=== PATIENT | male | born 1955 | race Caucasian/White ===

== ENCOUNTER 2021-11-06 16:00 | Outpatient (CLI) | payer MEDICARE, SELFPAY ==
--- NOTE | 2021-11-06 16:00 | MR_ITS ---
WS: [id number] MRI LUMBAR SPINE NONCONTRAST TECHNIQUE: Sagittal T1, T2 and STIR imaging. Axial T1 and T2 imaging. CLINICAL INFORMATION: back pain with RLE numbnes and B LE weakness. COMPARISON: None. FINDINGS: Mild lumbar curve. No acute compression. Grade 1 anterolisthesis L4 on L5. Severe central canal steno sis L4-L5 due to grade 1 anterolisthesis in combination with mild disc bulging with moderate facet ar thropathy and ligamentum flavum hypertrophy. Impingement on the traversing L5 nerve roots bilaterally . L1-L2: No significant disc bulging. Mild facet arthropathy. Spinal canal and foramen are patent. L2-L3: Mild annular bulging. Mild facet arthropathy. Spinal canal and foramen are patent. L3-L4: Mild annular bulging. Slight narrowing of the RIGHT subarticular recess with encroachment RIGH T L4 nerve root. Mild RIGHT and no significant LEFT foraminal narrowing. L4-L5: Grade 1 anterolisthesis in combination with disc bulging and facet arthropathy with ligamentum flavum hypertrophy. This results in severe central canal stenosis with impingement on the subarticul ar recess and traversing L5 nerve roots bilaterally. Moderate RIGHT and mild LEFT foraminal narrowing . Impingement on the exiting right L4 nerve root. L5-S1: Mild disc bulging with endplate ridging. Slight impingement on the traversing RIGHT greater th an LEFT S1 nerve roots. Moderate RIGHT foraminal narrowing with slight impingement on the exiting rig ht L5 nerve root. Mild disc bulging C3-C4 on the retarder operator imaging with mild to moderate central canal stenosis. This can b e further evaluated with cervical spine MRI. Small disc protrusions in the lower thoracic spine at T1 0-T11 and T11-T12. Visualized pelvic bony structures: Normal. Paravertebral soft tissues: Normal. MR/MR lumbar spine wo con* [id number] IMPRESSION: 1. Severe central canal stenosis L4-L5 due to grade 1 anterolisthesis in [facility] with disc bulging and facet arthropathy with ligamentum flavum hypertrop hy. Impingement traversing L5 nerve roots bilaterally in the subarticular reces s. 2. Moderate RIGHT L4-L5 foraminal narrowing impinges the exiting RIGHT L4 nerv e root. 3. Mild RIGHT L3-L4 foraminal narrowing. 4. Moderate RIGHT L5-S1 foraminal narrowing with slight contact of the exiting RIGHT L5 nerve root. 5. Moderate facet arthropathy L3-L5. 6. Disc bulging C3-C4 seen on the retarder operator imaging with mild to moderate central canal stenosis. This can be further evaluated with cervical spine MRI. 7. Small central disc protrusions lower thoracic spine at T10-T11 and T11-T12.
== END 2021-11-06 16:01 | disposition home or self-care (01) ==
PROVIDERS: PCP Internal Medicine; Visit Provider Internal Medicine
DX: R20.0 Anesthesia of skin (principal); R53.1 Weakness; M48.061 Spinal stenosis, lumbar region without neurogenic claudication; M51.26 Other intervertebral disc displacement, lumbar region; M47.816 Spondylosis without myelopathy or radiculopathy, lumbar region; M50.21 Other cervical disc displacement, high cervical region
CPT/HCPCS: 72148

== ENCOUNTER → 2021-11-25 16:53 | Outpatient (BNVA) | payer MEDICARE, SELFPAY | PROVIDERS: PCP Internal Medicine; Visit Provider Internal Medicine | DX: I10 Essential (primary) hypertension (principal); N40.0 Benign prostatic hyperplasia without lower urinary tract symptoms | CPT/HCPCS: 80061; G0103 ==

== ENCOUNTER → 2021-12-10 13:15 | Outpatient (BNVA) | payer MEDICARE, SELFPAY | PROVIDERS: PCP Internal Medicine; Visit Provider Orthopaedic Surgery | DX: M43.16 Spondylolisthesis, lumbar region (principal) | CPT/HCPCS: 99214 ==

== ENCOUNTER 2021-12-23 07:04 | Day surgery (SDC) | payer MEDICARE, SELFPAY ==
--- NOTE | 2021-12-18 13:58 | ECG_ITS ---
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 Measurements Intervals [place] Rate: 73 P: 57 TX: 191 QRS: -28 QRSD: 97 T: 47 QT: 383 QTc: 423 Interpretive Statements SINUS RHYTHM BORDERLINE LEFT AXIS DEVIATION [QRS AXIS < -20] No previous ECG available for comparison Electronically Signed On 12-18-2021 22:26:38 CDT by Ramiro Cisse M.D. [id number]
[2021-12-18 14:11] VITALS: BMI 31.1
--- NOTE | 2021-12-18 16:39 | ANES.PREANE2 ---
Pre-Anesthetic Assessment Height/Weight: Height 1.83 m Weight 104.326 kg Preop Diagnosis: Lumbar stenosis Operation Date: 12/23/21 13:35 Proposed Procedures p Lumbar Spine Decompression 44121(Not Applicable) - Abdiel Prater DO Familial anesthetic complications: None Was Beta Tesha taken within 24 hours: N/A Was Clonidine taken within 24 hours: N/A Social No alcohol and No tobacco Exam alert, oriented x 3, clear to auscultation bilaterally and regular rate & rhythm Airway Submandibular: within normal limits Cervical ROM: within normal limits Mallampati: Class I Dentition: chipped History/ROS No significant complaints Pulmonary None reported CV/HEM Hemochromatosis Denies CAD, CHF, valvular disease METS > 4 (does push ups) EKG 12/18/21 ?Interpretive Statements SINUS RHYTHM BORDERLINE LEFT AXIS DEVIATION? [QRS AXIS < -20] No previous ECG available for comparison [id number] Enlarged prostate Hepatic Denies liver disease GI None reported Metabolic None reported Musc/skel Weakness (Patient reports weakness in b/l LE) Spondylolisthesis Stenosis Neuropsych None reported Anesthetic Plan ASA status: 2 Anesthesia: Anesthesia Evaluation and General Other: We discussed risk and benefits of general anesthesia including PONV, sore throat (sometimes severe), corneal abrasion, positioning and peripheral nerve injuries, life threatening allergic reaction, post operative ICU admission requiring prolonged intubation, stroke, heart attack, , permanent blindness, and rare incidences of recall. Patient consents to proceed with general anesthesia. Risk of > 500 ml blood loss (7ml/kg in children): No Medications/Allergies Home Medications Medication Instructions Recorded Confirmed Last Taken Type multivitamin 1 tab PO DAILY 09/25/21 12/18/21 Unknown History naproxen 250 mg tablet 250 mg PO BID PRN 09/25/21 12/18/21 Unknown History losartan 50 mg tablet 50 mg PO DAILY #90 tab 09/26/21 12/18/21 Unknown Rx tamsulosin 0.4 mg capsule (Flomax) 0.4 mg PO DAILY #90 cap 09/26/21 12/18/21 Unknown Rx primidone 50 mg tablet 50 mg PO DAILY PRN 12/18/21 12/18/21 Unknown History Allergies Allergy/AdvReac Type Severity Reaction Status Date / Time No Known Allergies Allergy Verified 12/10/21 13:24 [facility] Anesthesia Medical History Enlarged prostate HTN (hypertension) with goal to be determined Spinal stenosis Social History Smoking and tobacco status: never smoked Data Anesthesia Cardiac Studies: No Data to Display
[2021-12-23] VITALS (10 sets, daily range): BP systolic 116–144; BP diastolic 66–78; PULSE 58–90; RESP 16–22; TEMP 36.2–36.4; O2SAT 95–98
--- NOTE | 2021-12-23 | SCC_ITS ---
Procedure done: 1. Laminectomy with partial facetectomy L4/5 6.9 seconds of fluoroscopic guidance, for a cumulative dose of 2.23 mGy, was provided to Dr. Prater by the radiology department. C-arm images of the lumbar spine were saved for the patient's permanent record. [facility]
--- NOTE | 2021-12-23 08:02 | W.PM.OPSUD ---
Surgery/Procedure H&P Update DATE OF PROCEDURE: December 23, 2021 DATE H&P PERFORMED: 12/10/21 H&P UPDATE INFORMATION: I have reviewed H&P completed within last 30 days, I have examined patient prior to procedure and Changes to prior documentation as noted here PREOP DIAGNOSIS: Lumbar stenosis PLANNED PROCEDURE: Operation Date: 12/23/21 08:50 Proposed Procedures p Lumbar Spine Decompression 50535(Not Applicable) - Abdiel Prater DO
--- NOTE | 2021-12-23 08:05 | P.ANESUD_ITS ---
Pre-Anesthetic Update Pre-Anesthetic Assessment: Date of Surgery/Procedure: 12/23/21 Preop Rosemary gnosis: Lumbar stenosis Proposed Procedure: Operation Date: 12/23/21 08:50 Proposed Procedures p Lumbar Spine Decompression 82456(Not Applicable) - Abdiel Prater, DO Any changes to Pre-Anesthetic Assessment?: No Last Intake: water 0530 Exam: Pre-Anes Outpt Exam: alert, oriented x 3, clear to auscultation bilaterally and regular rate & rhythm Cardiac Studies: No Data to Display
[2021-12-23] MEDS: sodium chloride 0.9% 1,000 ML 30 ML IV (08:15)
--- NOTE | 2021-12-23 09:35 | XR_ITS ---
WS: [id number] Lumbar spine, C-arm fluoroscopy, 12/23/2021 Clinical Data: OR PICS Comparison: None. Findings: Dr. Prater performed a lumbar decompression. XR/XR lumbar spine 1V port 13201 Impression: Lumbar decompression.
[2021-12-23] MEDS: fentaNYL 50 mcg/mL INJ 2mL IVP (09:47)
--- NOTE | 2021-12-23 09:50 | P.PCN_ITS ---
PACU note Narrative: VSS, Good respiratory effort, report to SUPERVISOR COOPERAGE SHOP Exam: awake
--- NOTE | 2021-12-23 09:50 | PM.PACU ---
PACU note Narrative: VSS, Good respiratory effort, report to SHORT PIECE HANDLER Exam: awake
--- NOTE | 2021-12-23 09:53 | P.OP_ITS ---
Operative Report Date of procedure: December 23, 2021 Pre-op diagnosis: Preop Diagnosis Lumbar stenosis Post-op diagnosis: same Procedure done: 1. Laminectomy with partial facetectomy L4/5 Surgeon: Abdiel Prater Eyeglass Frame Truer: Angel Leyva Eyeglass Frame Truer: The surgical services asst, Angel Leyva, PAC was needed for his expertise under the microscope. He was important and necessary throughout the procedure to complete in a safe and timely manner. He assisted with patient positioning prepping and draping tissue retraction suctioning of the operative field protection of the dural sac and tissue closure Estimated blood loss (mL): 5 Procedure: 1. L4/5 laminectomy with patial facetectomy Patient is brought to the operative suite. After undergoing anesthesia they are placed in the prone position. All areas of impingement are well padded. Patient is then prepped and draped in the normal sterile fashion. A skin incision is made over the L4/5 level. This is confirmed under c-arm guidance. A series of dilators are passed and the tubular retractor is docked on the L4 lamina. A bovie is used to clear the soft tissue off the lamina and the L 4/5 facet joint. A high speed armando is then used to perform the laminectomy and take down the medial aspect of the L 4/5 facet joint. A kerrison rongeure was then used to take down the remaining lamina and smooth the edge of the laminectomy up to the point where the ligamentum flavum attaches. Attention was then brought to the medial aspect of the facet joint. The remaining medial aspect of the superior and inferior aspect of the facet joint were taken down with the kerrison from the pedicle of L4 to L 5. The facet joint had significant hypertrophy. Attention was then brought to the Ligamentum Flavum. The ligament was taken down from the lamina of L4 to L5 and out medially to the remaining facet joint. The ligament was thick. The dura was then exposed. The dura was in good rep air. The L4 nerve was then traced with a curette out the L4/5 foramen and found to be adequately decompressed. The L5 nerve was traced with a curette around the L5 pedicle. The lateral recess was opened with a kerrison helping to further decompress the L5 nerve. Wound is then irrigated copiously with saline and surgiflo is used to stop any bleeding. The tubular retractor is removed and the wound is closed with vicryl and monocryl suture. Glue is then used to protect the wound. A sterile dressing is then placed. Patient was then placed in the supine position and transferred to the PACU in stable condition.
--- NOTE | 2021-12-23 09:56 | SUR.PHASEI ---
0937 PT AWAKE ALERT TALKATIVE, ON RA PT VSS PT ABLE TO MOVE BILAT FEET TO COMMAND WITH STRONG DORSAL FLEXATION AND EXTENSION NOTED LOW BACK DRESSING D/I , IV TO HAND #20 WITH NS 250 UP AT KVO RATE PER GRAVITY. PTID BAND TO LT WRIST PT ID'D WITH 2 IDENTIFIERS. BILAT SCDS ON .
[2021-12-23] MEDS: HYDROcodone-acetaminophen 5-325 mg Tablet 1 TAB PO (10:54)
--- NOTE | 2021-12-23 14:41 | ANE.PACU2 ---
Inpatient post-anesthesia follow up: Airway intact: Yes Vital signs: Temperature 97.6 F Pulse Rate 58 Respiratory Rate 18 Blood Pressure 132/72 Pulse Oximetry 96 Oxygen Delivery Me thod Room Air Oxygen Flow Rate Fraction of Inspir ed Oxygen Hydration adequate: Yes Nausea and vomiting: No Pain level: 2 Mental status: Baseline
== END 2021-12-23 11:15 | disposition home or self-care (01) ==
PROVIDERS: PCP Internal Medicine; Visit Provider Orthopaedic Surgery
PROC: (CPT 63005; principal; 2021-12-23 08:50)
DX: M48.061 Spinal stenosis, lumbar region without neurogenic claudication (principal); I10 Essential (primary) hypertension
CPT/HCPCS: 63047; 72020; 76000; 93005; J0690; J1100; J2405; J2704; J2710; J3010; J3490; J7030

== ENCOUNTER → 2022-01-07 09:41 | Outpatient (BNVA) | payer MEDICARE, SELFPAY | PROVIDERS: PCP Internal Medicine; Visit Provider Orthopaedic Surgery | DX: Z47.89 Encounter for other orthopedic aftercare (principal); Z98.890 Other specified postprocedural states | CPT/HCPCS: 99024 ==

== ENCOUNTER → 2022-02-04 11:15 | Outpatient (BNVA) | payer MEDICARE, SELFPAY | PROVIDERS: PCP Internal Medicine; Visit Provider Orthopaedic Surgery | DX: Z47.89 Encounter for other orthopedic aftercare (principal); Z98.1 Arthrodesis status | CPT/HCPCS: 99024 ==

== ENCOUNTER → 2022-02-06 12:25 | Outpatient (BNVA) | payer MEDICARE, SELFPAY | PROVIDERS: PCP Internal Medicine; Referring Provider Orthopaedic Surgery; Visit Provider Specialist | DX: M54.17 Radiculopathy, lumbosacral region (principal); G62.9 Polyneuropathy, unspecified; G25.0 Essential tremor | CPT/HCPCS: 99204 ==

== ENCOUNTER 2022-02-26 13:36 | Outpatient (CLI) | payer MEDICARE, SELFPAY ==
--- NOTE | 2022-02-26 14:15 | US_ITS ---
WS: [id number] RIGHT UPPER QUADRANT ULTRASOUND HISTORY: E83.119 - Hemochromatosis, unspecified COMPARISON: None available. Liver: 16.0 cm in length. Normal size liver. No bile duct dilatation or mass. Portal Vein: Normal hepatopetal flow with monophasic waveform. Gallbladder: Normally distended gallbladder with no stones or wall thickening. CBD: 0.4 cm Pancreas: Poorly visualized due to body habitus. Right kidney: 10.6 cm in length. Normal size and echogenicity. No hydronephrosis or mass. Aorta and IVC: Unremarkable abdominal aorta and IVC. No ascites. US/US liver [id number] IMPRESSION: Normal RIGHT upper quadrant ultrasound.
== END 2022-02-26 13:37 | disposition home or self-care (01) ==
PROVIDERS: PCP Internal Medicine; Visit Provider Internal Medicine
DX: E83.119 Hemochromatosis, unspecified (principal)
CPT/HCPCS: 76705

== ENCOUNTER → 2022-02-27 14:17 | Outpatient (BNVA) | payer MEDICARE, SELFPAY | PROVIDERS: PCP Internal Medicine; Referring Provider Specialist; Visit Provider Specialist | DX: G62.89 Other specified polyneuropathies (principal); M54.17 Radiculopathy, lumbosacral region | CPT/HCPCS: 95909; 95911 ==

== ENCOUNTER → 2022-03-06 09:30 | Outpatient (BNVA) | payer MEDICARE, SELFPAY | PROVIDERS: PCP Internal Medicine; Referring Provider Specialist; Visit Provider Specialist | DX: M54.17 Radiculopathy, lumbosacral region (principal); G62.9 Polyneuropathy, unspecified | CPT/HCPCS: 36415; 82607; 82746; 83921; 84443; 85651; 86140; 86334; 86431; 95861; 99213; 99214 ==

== ENCOUNTER → 2022-03-18 10:06 | Outpatient (BNVA) | payer MEDICARE, SELFPAY | PROVIDERS: PCP Internal Medicine; Visit Provider Orthopaedic Surgery | DX: Z47.89 Encounter for other orthopedic aftercare (principal); Z98.890 Other specified postprocedural states; G62.9 Polyneuropathy, unspecified | CPT/HCPCS: 99024 ==

== ENCOUNTER → 2022-06-09 13:11 | Outpatient (BNVA) | payer MEDICARE, SELFPAY | PROVIDERS: PCP Internal Medicine; Visit Provider Specialist | DX: M54.17 Radiculopathy, lumbosacral region (principal); G25.0 Essential tremor; Z98.890 Other specified postprocedural states | CPT/HCPCS: 99213; 99214 ==

== ENCOUNTER → 2022-06-19 10:01 | Outpatient (BNVA) | payer MEDICARE, SELFPAY | PROVIDERS: PCP Internal Medicine; Visit Provider Orthopaedic Surgery | DX: M54.17 Radiculopathy, lumbosacral region (principal) | CPT/HCPCS: 99213; 99214 ==

== ENCOUNTER → 2022-07-08 13:36 | Outpatient (BNVA) | payer MEDICARE, SELFPAY | PROVIDERS: PCP Internal Medicine; Visit Provider Family Medicine Adult Medicine | DX: Z13.6 Encounter for screening for cardiovascular disorders (principal); I10 Essential (primary) hypertension; N40.0 Benign prostatic hyperplasia without lower urinary tract symptoms | CPT/HCPCS: 80053; 80061; 84153; 85025 ==

== ENCOUNTER 2022-08-08 07:42 | Outpatient (CLI) | payer MEDICARE, SELFPAY ==
--- NOTE | 2022-08-08 08:00 | MR_ITS ---
WS: [id number] MRI LUMBAR SPINE NONCONTRAST HISTORY: Bilateral leg numbness for 5 years. COMPARISON: 11/06/2021 TECHNIQUE: Sagittal and axial multisequence imaging is submitted. Marked increase in thoracic kyphosis. Mild cervical stenosis at C3-4. Disc bulging and osteophytic ri dging at T11-12 and T12-L1 with mild encroachment upon the ventral thecal sac, greatest at T11-12. Si milar to the prior study. Prior lumbar laminectomy 12/23/2021. L4 anterolisthesis by 7 mm. No fractures or marrow edema. Mild disc space narrowing and desiccation throughout. Conus terminates normally at L1. L1-L2: Mild facet and ligamentum flavum arthritis. No high-grade stenosis. L2-L3: Mild osteophytic ridging, ligamentum flavum and facet arthritis. No significant stenosis or pr ogression. L3-L4: Diffuse annular disc bulging with osteophytic ridging. Encroachment into the central canal. Th ere is at least mild if not moderate central, bilateral subarticular recess stenosis. Slightly progre ssed since the prior study. L4-L5: Large RIGHT laminectomy defect is noted since the prior study. Anterolisthesis and unroofing of the L4-5 disc. There is soft tissue causing complete effacement of fat in the foramina. Similar to the prior study. Continued central and bilateral subarticular recess stenosis. Some of these changes may be related to scar tissue but no contrast was given to differentiate. There is increase fluid in the facet joints. L5-S1: Diffuse annular disc bulge. Central disc protrusion with asymmetric disc bulging. Mild central and moderate bilateral foraminal stenosis and subarticular recess encroachment. Slightly greater enc roachment upon the traversing RIGHT S1 nerve root. MR/MR lumbar spine wo con* [id number] IMPRESSION: 1. New RIGHT hemilaminectomy defect at L4-5. Continued severe central, bilater al subarticular recess and foraminal stenosis with encroachment upon the nerve roots. 2. Mild central with moderate bilateral subarticular recess and foraminal sten osis at L5-S1. Greater encroachment upon the RIGHT S1 nerve root. 3. Continued grade 1 anterolisthesis of L4. 4. Mild to moderate central, bilateral subarticular recess and foraminal steno sis at L3-4 with slight progression since the prior study.
== END 2022-08-08 07:43 | disposition home or self-care (01) ==
PROVIDERS: Visit Provider Orthopaedic Surgery
DX: M54.17 Radiculopathy, lumbosacral region (principal); M48.07 Spinal stenosis, lumbosacral region
CPT/HCPCS: 72148

== ENCOUNTER → 2022-09-04 13:59 | Outpatient (BNVA) | payer MEDICARE, SELFPAY | PROVIDERS: Visit Provider Orthopaedic Surgery | DX: Z47.89 Encounter for other orthopedic aftercare (principal) | CPT/HCPCS: 99214 ==

== ENCOUNTER 2022-12-09 16:30 | Emergency (ER) | payer MEDICARE, SELFPAY ==
[2022-12-09 16:34] VITALS: BP 150/78; PULSE 84; RESP 16; TEMP 37; O2SAT 97
--- NOTE | 2022-12-09 18:00 | W.ED.BACK ---
HPI - Back Pain/Injury General: Chief Complaint: Back Pain/Injury Stated Complaint: Lower Right back pain Time Seen by Provider: 12/09/22 17:13 History of Present Illness: Patient is a 67-year-old male comes to the ED with acute on chronic lower back pain. He endorses having chronic lower back pain as well and has a history of degenerative disc disease and some lumbar stenosis. Patient also sees Dr. Prater the orthospine specialist. Symptoms started approximately 4 days ago. Pain is in the lower back and also radiates down right leg. He rates the pain currently a 5 out of 10 but says most the time its been close to a 9 out of 10. Denies any injury or trauma to cause worsening back pain. Denies any bladder or bowel incontinence, pelvic anesthesia or any weakness to lower extremities. Ambulation worsens pain. Associated symptoms: Deny abdominal pain, chills, dysuria, fatigue, fever(s), hematuria, nausea or vomiting Review of Systems Const: Denies: fever(s), chills or fatigue Eyes: Denies: change in vision or eye discomfort ENMT: Denies: throat pain, odynophagia, nasal discharge or nasal congestion Card: Denies: chest pain, palpitations, edema, swelling of feet/ankles, dyspnea on exertion or orthopnea Resp: Denies: dyspnea, productive cough or non-productive cough GI: Denies: abdominal pain, nausea, vomiting, diarrhea, constipation or hematochezia : Denies: flank pain, difficulty urinating, dysuria or hematuria Musc: Reports: back pain; Denies: neck pain or extremity swelling Skin/Breast: Denies: rash or new lesions Neuro: Denies: headache(s), numbness in extremities or weakness in extremities PFSH ED PFSH: Medical History Abnormal EKG DDD (degenerative disc disease) Encounter for postoperative care Enlarged prostate History of a prostate nodule HTN (hypertension) with goal to be determined Lumbar radiculopathy Lumbosacral radiculopathy at L5 Surgical History History of hernia surgery S/P laminectomy Dr. Prater with L4-L5 laminectomy 12/23/2021 Family History Father Cancer brain and skin Mother Cancer ovarian Other Dementia Hyperlipidemia Hypertension Denies family history of Diabetes CAD (coronary artery disease) Clotting disorder Psychiatric illness Chronic kidney disease (CKD) Anesthesia complication Bleeding disorder Lung disease Stroke Social History Smoking and tobacco status: former smoker Alcohol intake: current Alcohol intake frequency: few times a week Desire information about alcohol rehabilitation?: No Desire information about substance/drug rehabilitation?: No Lives independently: Yes Marital status: Number of children: 2 Current occupational status: retired Current gender identity: Male Physical Exam Const: COMMON NORMALS: patient oriented x3 HENMT: COMMON NORMALS: normocephalic HEAD & SCALP: normocephalic MOUTH: Normal oral and palatal mucosa present THROAT: posterior oropharynx normal and uvula midline Neck/C-Spine: COMMON NORMALS: supple GENERAL: Yes normal visual inspection Resp: COMMON NORMALS: normal respiratory effort, No retractions, No use of accessory muscles and clear to auscultation bilaterally AUSCULTATION: clear to auscultation bilaterally Cardio: COMMON NORMALS: regular rate, regular rhythm, S1 normal heart sound present, S2 normal heart sound present, No gallops present (Cardio), No clicks present (Cardio), No murmurs present (Cardio) and Peripheral pulses 2+ throughout RATE: regular rate RHYTHM: regular rhythm HEART SOUNDS: S1 normal heart sound present and S2 normal heart sound present PERIPHERAL PULSES: Peripheral pulses 2+ throughout GI: COMMON NORMALS: Normal to inspection, nondistended, normoactive bowel sounds present, Soft to palpation, non-tender and no masses PALPATION: Yes Soft to palpation : COMMON NORMALS: Yes no CVA tenderness BLADDER/KIDNEY EXAM: Yes no CVA tenderness Back/Pelvis: COMMON NORMALS: no CVA tenderness LUMBAR SPINE/LOWER BACK: Yes lumbar ROM normal and Yes paraspinal muscle tenderness Lumbar paraspinal muscle tenderness: bilateral Extremity: COMMON NORMALS: normal to inspection Neuro: COMMON NORMALS: patient oriented x3 GAIT: Yes Normal gait present Skin: GENERAL SKIN EXAM: dry skin Course Vital Signs: Vital signs: Vital Signs Temperature 98.6 F 12/09/22 16:34 Pulse Rate 77 12/09/22 18:14 Respiratory Rate 16 12/09/22 18:14 Blood Pressure 142/75 12/09/22 18:14 Pulse Oximetry 95 12/09/22 18:14 Oxygen Delivery Me thod 12/09/22 18:14 MDM - Back Pain/Injury Medical Decision Making Patient is a 67-year-old male comes to the ED with acute on chronic lower back pain. He endorses having chronic lower back pain as well and has a history of degenerative disc disease and some lumbar stenosis. Patient also sees Dr. Prater the orthospine specialist. Symptoms started approximately 4 days ago. Pain is in the lower back and also radiates down right leg. He rates the pain currently a 5 out of 10 but says most the time its been close to a 9 out of 10. Denies any injury or trauma to cause worsening back pain. Denies any bladder or bowel incontinence, pelvic anesthesia or any weakness to lower extremities. Ambulation worsens pain. Vitals are stable. Patient had some lumbar paraspinal muscle tenderness bilaterally but rest of exam is benign and he appears nontoxic in no acute distress. He is able to ambulate. Patient was given dose of pain med, muscle relaxer and steroid here in the ED and his symptoms improved. He was stable for discharge home and sent home with a prescription for a couple hydrocodone, NSAID, muscle relaxer and Medrol Dosepak. Told to follow-up with his PCP within the next 3 to 5 days for reevaluation. Return to ED precautions given. Patient understood and agreed with plan. Discharge Plan Discharge Patient Disposition: Home Clinical Impression: Lumbar radiculopathy Condition: Stable Prescriptions: New meloxicam 15 mg tablet 15 mg PO DAILY PRN (Reason: pain) Qty: 30 0RF methocarbamol 750 mg tablet 750 mg PO Q8H PRN (Reason: muscle spasms and pain) Qty: 30 0RF methylprednisolone 4 mg tablets,dose pack See Rx Instructions .ROUTE .COMPLEX Qty: 21 0RF Rx Instructions: orally per package directions No Action naproxen 250 mg tablet 250 mg PO BID PRN (Reason: Pain) multivitamin Tablet 1 tab PO EVERY OTHER DAY tamsulosin [Flomax] 0.4 mg capsule 0.4 mg PO DAILY Qty: 90 3RF Vitamin C 500 mg Tablet 500 mg PO BID Fish Oil 1,200 (144-216) mg Capsule 1 cap PO DAILY Prostate Health 160-100-100 mg-unit-mcg Tablet 1 tab PO DAILY Discharge Orders: Discharge ED (Routine); Ordered 12/09/22 Ordered By: Abner Mac Referrals: Kumar Ewing MD [Primary Care Provider] - Discharge Diet: Regular Discharge Activity: Increase activity as tolerated Patient Instructions: Lumbar Radiculopathy (ED) Activity Restrictions/Additional Instructions: Follow-up with medical provider as directed in the next 3-5 days for reevaluation. Take medications as prescribed. Return to the ER or your medical provider if condition worsens. Please read and understand discharge instructions. Thank you for choosing [facility] for your healthcare needs today. Please realize this is an emergency room and that we are providing you with a medical screening exam and this may not be complete and all inclusive of all the testing and or work up that you may need to determine your ailment or severity of your illness. It is very important that you follow up as instructed or that you return to the Emergency Department should you have concerns or if your condition changes or worsens in any way. Coding Level of Care Code ED Director Acute for Aura Banks
[2022-12-09 18:12] VITALS: RESP 15; O2SAT 97
[2022-12-09] MEDS: morphine 4 mg/mL SDV 1 mL IM (18:12)
[2022-12-09] MEDS: orphenadrine 30 mg/mL Inj 2 mL 60 MG IM (18:13)
[2022-12-09 18:14] VITALS: BP 142/75; PULSE 77; RESP 16; O2SAT 95
[2022-12-09] MEDS: ketorolac 60 mg/2 mL INJ IM (18:45)
== END 2022-12-09 19:41 | disposition home or self-care (01) ==
PROVIDERS: Emergency Provider Physician Assistant; PCP Family Medicine Adult Medicine
DX: M54.16 Radiculopathy, lumbar region (principal)
CPT/HCPCS: 96372; 99284; J1885; J2270; J2360; J2930

== ENCOUNTER → 2022-12-11 14:08 | Outpatient (BNVA) | payer MEDICARE, SELFPAY | PROVIDERS: PCP Family Medicine Adult Medicine; Visit Provider Orthopaedic Surgery | DX: M48.062 Spinal stenosis, lumbar region with neurogenic claudication (principal) | CPT/HCPCS: 99214 ==

== ENCOUNTER 2022-12-14 19:43 | Emergency (ER) | payer MEDICARE, SELFPAY ==
[2022-12-14 19:54] VITALS: BP 148/74; PULSE 83; RESP 22; TEMP 36.9; O2SAT 96; BMI 31.1
[2022-12-14 20:09] VITALS: BP 151/82; PULSE 96; RESP 16; TEMP 36.8; O2SAT 92
--- NOTE | 2022-12-14 20:24 | CTR_ITS ---
PROCEDURE INFORMATION: Exam: CT Lumbar Spine Without Contrast Exam date and time: 12/14/2022 8:30 PM Age: 67 years old Clinical indication: Weakness; Low back pain; Prior surgery; Surgery date: 6+ months; Surgery type: Lumbar laminectomy; Additional info: Lower back pain, R radiculopathy HX laminectomy TECHNIQUE: Imaging protocol: Computed tomography of the lumbar spine without contrast. Radiation optimization: All CT scans at this facility use at least one of these dose optimization techniques: automated exposure control; mA and/or kV adjustment per patient size (includes targeted exams where dose is matched to clinical indication); or iterative reconstruction. REPORTING DATA: Count of CT and Cardiac NM exams in prior 12 months: This patient has received 0 known CTs and 0 known cardiac nuclear medicine studies in the 12 months prior to the current study. COMPARISON: MR lumbar spine wo con* [id number] 08/08/2022 8:06 AM RADIATION DOSE METRICS: Total DLP (mGy-cm): 1255.18 FINDINGS: Bones/joints: Right L5 laminectomy changes. L1-L2: No significant disc bulge or herniation. No severe spinal canal stenosis. No significant neural foraminal narrowing. L2-L3: L2-L3 broad-based disc bulge with mild spinal canal and bilateral foraminal narrowing. L3-L4: L3-L4 broad-based disc bulge with mild spinal canal and moderate bilateral foraminal narrowing. L4-L5: Grade 1 anterolisthesis of L4 relative to L5 of 5.7 mm with a broad-based disc bulge resulting in eszc-uc-bepyjrqy spinal canal and moderate to severe bilateral foraminal narrowing. L5-S1: L5/S1 broad-based disc bulge with mild spinal canal and moderate to severe bilateral foraminal narrowing. Soft tissues: Unremarkable. CT/CT lumbar spine wo con* [id number] IMPRESSION: 1. L2-L3 broad-based disc bulge with mild spinal canal and bilateral foraminal narrowing. 2. L3-L4 broad-based disc bulge with mild spinal canal and moderate bilateral foraminal narrowing. 3. Grade 1 anterolisthesis of L4 relative to L5 of 5.7 mm with a broad-based disc bulge resulting in mipo-yt-ecazqdpk spinal canal and moderate to severe bilateral foraminal narrowing. 4. L5/S1 broad-based disc bulge with mild spinal canal and moderate to severe bilateral foraminal narrowing. 5. Right L5 laminectomy changes.
[2022-12-14] MEDS: ketorolac 30 mg/mL INJ IM (20:44)
[2022-12-14] MEDS: HYDROmorphone 1 mg/mL INJ 1 mL 2 MG IM (20:46)
--- NOTE | 2022-12-14 22:01 | ED_ITS ---
HPI - Back Pain/Injury General: Chief Complaint: Back Pain/Injury Stated Complaint: back pain Time Seen by Provider: 12/14/22 19:48 Source: patient History of Present Illness: 67-year-old gentleman with a history of laminectomy a year ago. He presents with increasing back pain radiating down his posterior right lower extremity for the past several days. He has been seen here in the ER for this. Has been seen by his primary physician as well as a spine surgeon. He has been placed on hydrocodone 7.5 mg, gabapentin, and meloxicam. He has also taken cyclobenzaprine. He notes that the pain is gotten worse despite all these things. His last dose of hydrocodone was 2 pills 4 hours prior to arrival. He believes this is wearing off. He was lying in bed with increasing pain, and felt that he could not stand the pain any longer. He was told that he may need an MRI and to come to the emergency department for this. MD elicited complaint: back pain Pertinent past history: prior back pain Onset (ago): day(s) Timing: constant and progressively worsening Quality: burning and sharp Radiation: right leg below the knee Relieving factors: none Associated symptoms: Deny abdominal pain, chills, dysuria, fever(s) or myalgias Review of Systems Const: Denies: fever(s) or chills Card: Denies: chest pain Resp: Denies: dyspnea GI: Denies: abdominal pain : Denies: flank pain, difficulty urinating or dysuria Musc: Reports: back pain Skin/Breast: Denies: rash Neuro: Denies: headache(s) PFSH ED PFSH: Medical History Abnormal EKG DDD (degenerative disc disease) Encounter for postoperative care Enlarged prostate History of a prostate nodule HTN (hypertension) with goal to be determined Lumbar radiculopathy Lumbosacral radiculopathy at L5 Sciatica neuralgia Surgical History History of hernia surgery S/P laminectomy Dr. Prater with L4-L5 laminectomy 12/23/2021 Family History Father Cancer brain and skin Mother Cancer ovarian Other Dementia Hyperlipidemia Hypertension Denies family history of Diabetes CAD (coronary artery disease) Clotting disorder Psychiatric illness Chronic kidney disease (CKD) Anesthesia complication Bleeding disorder Lung disease Stroke Social History Smoking and tobacco status: former smoker Alcohol intake: current Alcohol intake frequency: few times a week Desire information about alcohol rehabilitation?: No Desire information about substance/drug rehabilitation?: No Lives independently: Yes Marital status: Number of children: 2 Current occupational status: retired Current gender identity: Male Physical Exam Const: COMMON NORMALS: no acute distress GENERAL APPEARANCE: cooperative; not ill appearing and not frail appearing HENMT: COMMON NORMALS: normocephalic, atraumatic and Normal external nose present HEAD & SCALP: normocephalic and atraumatic FACE & SINUS: normal facial exam and face symmetric NOSE: Normal external nose present Eye: COMMON NORMALS: Equal, round and reactive pupils present and EOMs intact bilaterally PUPIL: Yes Equal, round and reactive pupils present Neck/C-Spine: GENERAL: Yes trachea midline Chest: CHEST: Yes Symmetrical chest wall rise Resp: COMMON NORMALS: normal respiratory effort, No retractions, No use of accessory muscles and clear to auscultation bilaterally AUSCULTATION: clear to auscultation bilaterally Cardio: COMMON NORMALS: regular rate and regular rhythm RATE: regular rate RHYTHM: regular rhythm GI: COMMON NORMALS: Normal to inspection, nondistended, normoactive bowel sounds present Back/Pelvis: LUMBAR SPINE/LOWER BACK: Yes straight leg raise positive right OTHER: Tenderness at L5-S1 bilaterally Extremity: COMMON NORMALS: no pedal edema Neuro: ERWIN COMA SCALE: document GCS findings [place] coma scale eye opening: Spontaneous [place] coma scale verbal response: Orientated [place] coma scale motor response: Obey commands Erwin coma scale total score: 15 SENSORY EXAM: Yes extremities (intact) Psych: COMMON NORMALS: speech normal SPEECH: Yes normal speech Skin: COMMON NORMALS: no rashes or lesions noted GENERAL SKIN EXAM: no rashes or lesions noted Course Vital Signs: Vital signs: Vital Signs Temperature 98.2 F 12/14/22 20:09 Pulse Rate 61 12/14/22 23:05 Respiratory Rate 18 12/14/22 23:05 Blood Pressure 136/90 12/14/22 23:05 Pulse Oximetry 91 12/14/22 23:05 Oxygen Delivery Me thod Room Air 12/14/22 22:30 MDM - Back Pain/Injury Medical Decision Making CT scan of the lumbar spine shows L5-S1 broad-based disc bulge with moderate to severe bilateral foraminal narrowing. There is only mild canal central narrowing. There is grade 1 anterolisthesis of L4 relative to L5. The patient is not having red flag symptoms. He is not having significant weakness. This is simply a pain control issue at this point until further intervention is decided upon. His pain is now a 4 out of 10 from 9 out of 10 after intramuscular injection of Toradol and Dilaudid. He will be allowed discharge. He has been told to discontinue his hydrocodone in favor of Dilaudid. He will discontinue other NSAIDs in favor of Toradol. He will continue his prednisone. Labs Radiology Impressions Lumbar Spine CT 12/14/22 20:24 IMPRESSION: 1. L2-L3 broad-based disc bulge with mild spinal canal and bilateral foraminal narrowing. 2. L3-L4 broad-based disc bulge with mild spinal canal and moderate bilateral foraminal narrowing. 3. Grade 1 anterolisthesis of L4 relative to L5 of 5.7 mm with a broad-based disc bulge resulting in ugll-vw-vtqpbyqs spinal canal and moderate to severe bilateral foraminal narrowing. 4. L5/S1 broad-based disc bulge with mild spinal canal and moderate to severe bilateral foraminal narrowing. 5. Right L5 laminectomy changes. Discharge Plan Discharge Patient Disposition: Home Clinical Impression: Lumbar radiculopathy Condition: Stable Prescriptions: New Dilaudid 4 mg tablet 4 mg PO Q6H PRN (Reason: pain) Qty: 7 0RF ketorolac 10 mg tablet 10 mg PO TID PRN (Reason: pain) Qty: 10 0RF Discontinued naproxen 250 mg tablet 250 mg PO BID PRN (Reason: Pain) Hold Instructions: Doctor's Order hydrocodone-acetaminophen 7.5-325 mg tablet 1 tab PO Q6H PRN (Reason: pain) 7 Days Qty: 30 0RF meloxicam 15 mg tablet 15 mg PO DAILY PRN (Reason: pain) Qty: 30 0RF methocarbamol 750 mg tablet 750 mg PO Q8H PRN (Reason: muscle spasms and pain) Qty: 30 0RF No Action multivitamin Tablet 1 tab PO EVERY OTHER DAY prednisone 20 mg tablet 20 mg PO DAILY Qty: 15 0RF Rx Instructions: 60mg X3 days 40mg X2 days 20mg X 2days cyclobenzaprine 10 mg tablet 10 mg PO TID PRN (Reason: muscle spasm) Qty: 90 0RF gabapentin 300 mg capsule 300 mg PO TID Qty: 90 0RF (DME) Walker See Rx Instructions .Route .MEDSUPPLY Qty: 1 0RF Rx Instructions: As directed tamsulosin [Flomax] 0.4 mg capsule 0.4 mg PO DAILY Qty: 90 3RF Vitamin C 500 mg Tablet 500 mg PO BID Fish Oil 1,200 (144-216) mg Capsule 1 cap PO DAILY Prostate Health 160-100-100 mg-unit-mcg Tablet 1 tab PO DAILY methylprednisolone 4 mg tablets,dose pack See Rx Instructions .ROUTE .COMPLEX Qty: 21 0RF Rx Instructions: orally per package directions Discharge Orders: Discharge ED (Routine); Ordered 12/14/22 Ordered By: Hoang Pleitez Referrals: Abdiel Prater DO [Physician] - 1-3 days Kumar Ewing MD [Primary Care Provider] - Patient Instructions: Lumbar Radiculopathy (ED), Opioid Safety, Pain Management Activity Restrictions/Additional Instructions: Stop your anti-inflammatory such as meloxicam and naproxen while taking the ketorolac. Stop your hydrocodone while using the hydromorphone. These are st ronger versions of the same type of medication, and will interact. Call your surgeon in the morning. Let them know you had a scan in the emergency department this evening. They may want to review those images to help guide treatment. 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
[2022-12-14 22:28] VITALS: RESP 18
[2022-12-14 22:30] VITALS: BP 162/87; PULSE 86; RESP 18; O2SAT 92
[2022-12-14 23:05] VITALS: BP 136/90; PULSE 61; RESP 18; O2SAT 91
== END 2022-12-14 23:06 | disposition home or self-care (01) ==
PROVIDERS: Emergency Provider Emergency Medicine; PCP Family Medicine Adult Medicine
DX: M54.16 Radiculopathy, lumbar region (principal); Z98.890 Other specified postprocedural states
CPT/HCPCS: 72131; 96372; 99284; J1170; J1885

== ENCOUNTER 2022-12-19 07:01 | Outpatient (CLI) | payer MEDICARE, SELFPAY ==
--- NOTE | 2022-12-19 07:25 | MR_ITS ---
WS: [id number] MRI LUMBAR SPINE NONCONTRAST TECHNIQUE: Sagittal T1, T2 and STIR imaging. Axial T1 and T2 imaging. CLINICAL INFORMATION: hx of lumbar sx, lower back pain with radiculopathy COMPARISON: CT December 14, 2022 and MRI August 08, 2022 FINDINGS: Some images degraded by patient motion. Mild lumbar curve. No acute compression. Grade 1 anterolisthesis L4 on L5. Disc bulging worse L4-L5 a nd L5-S1. Tiny central protrusion with mild central canal stenosis at T11-T12. Slight contact of the lower thoracic cord. Mild central canal stenosis in the cervical spine manager perioperative imaging at C3-C4 postope rative changes L4-L5 laminectomies are new from the prior MRI. L1-L2: Mild facet arthropathy. Spinal canal and foramen are patent. L2-L3: Mild annular bulging. Moderate facet arthropathy. Mild RIGHT and no significant LEFT foraminal narrowing. L3-L4: Mild annular bulging. Moderate facet arthropathy. Mild central canal stenosis. Mild bilateral foraminal narrowing. L4-L5: Grade 1 anterolisthesis. Postoperative changes laminectomy defects. This is new from previous. Residual moderate central canal stenosis although improved from previous. Narrowing of the subarticu lar recess recess bilaterally. RIGHT foraminal protrusion impinges the exiting L4 nerve root with sev ere RIGHT foraminal narrowing. Mild LEFT foraminal narrowing. Moderate to advanced facet arthropathy. L5-S1: Mild bulging. Tiny central protrusion. Slight impingement traversing S1 nerve roots bilaterall y. Mild central canal stenosis. Mild to moderate RIGHT foraminal narrowing. Moderate facet arthropath y. Visualized pelvic bony structures: Normal. Paravertebral soft tissues: Normal. MR/MR lumbar spine wo con* [id number] IMPRESSION: Some images are limited by patient motion 1. Mild lumbar curve. Grade 1 anterolisthesis L4 on L5. Laminectomy defects ar e new from previous. 2. Moderate residual central canal stenosis L4-L5 although improved from previ ous. Impingement traversing L5 nerve roots bilaterally. 3. Severe RIGHT L4-L5 foraminal narrowing. Advanced facet arthropathy at this level. 4. Shallow central disc protrusion L5-S1 impinges the traversing S1 nerve root s bilaterally with mild central canal stenosis. This is unchanged. Mild to mode rate RIGHT L5-S1 foraminal narrowing. 5. Mild central canal stenosis L3-L4 appears stable with mild bilateral forami nal narrowing.
== END 2022-12-19 07:02 | disposition home or self-care (01) ==
LOC: RAD 07:13
PROVIDERS: PCP Family Medicine Adult Medicine; Visit Provider Orthopaedic Surgery
DX: M54.16 Radiculopathy, lumbar region (principal); M48.062 Spinal stenosis, lumbar region with neurogenic claudication; M47.27 Other spondylosis with radiculopathy, lumbosacral region; M48.07 Spinal stenosis, lumbosacral region
CPT/HCPCS: 72148

== ENCOUNTER → 2022-12-23 14:35 | Outpatient (BNVA) | payer MEDICARE, SELFPAY | PROVIDERS: PCP Family Medicine Adult Medicine; Visit Provider Orthopaedic Surgery | DX: M48.062 Spinal stenosis, lumbar region with neurogenic claudication (principal) | CPT/HCPCS: 99214 ==

== ENCOUNTER → 2022-12-31 10:18 | Outpatient (BNVA) | payer MEDICARE, SELFPAY | PROVIDERS: PCP Family Medicine Adult Medicine; Visit Provider Clinical Nurse Specialist Adult Health | DX: I10 Essential (primary) hypertension (principal) | CPT/HCPCS: 80048; 85025 ==

== ENCOUNTER → 2023-01-06 12:58 | Outpatient (BNVA) | payer MEDICARE, SELFPAY | PROVIDERS: PCP Family Medicine Adult Medicine; Visit Provider Orthopaedic Surgery | DX: M48.062 Spinal stenosis, lumbar region with neurogenic claudication (principal) | CPT/HCPCS: 99214 ==

== ENCOUNTER 2023-01-12 17:58 | Inpatient (IN) | payer MEDICARE, SELFPAY ==
[2023-01-08 13:28] VITALS: BMI 31.1
--- NOTE | 2023-01-08 16:36 | P.ANESASSM_ITS ---
Pre-Anesthetic Assessment Height/Weight: Height 1.85 m Weight 107.048 kg Operation Date: 01/12/23 13:30 Proposed Procedures p L3- Pelvis PSF with decompression and PLIF at L5/S1 and possibly L4/5:41697,[id number],[id number],39878 X2,56798,N48.062(Not Applicable) - DO padmini Sosa Posterior Lumbar Interbody Fusion(Not Applicable) - Abdiel Prater DO Familial anesthetic complications: none Was Beta Tesha taken within 24 hours: N/A Was Clonidine taken within 24 hours: N/A Social No alcohol and No tobacco Exam alert, oriented x 3, clear to auscultation bilaterally and regular rate & rhythm Airway Submandibular: within normal limits Mallampati: Class II Dentition: chipped CV/HEM Hypertension Musc/skel Lower Back Pain and Osteoarthritis/DJD Chronic pain/opioid Neuropsych Anxiety Tremor Anesthetic Plan ASA status: 3 Anesthesia: General Other: Discussed a.line and transfusion. Medications/Allergies Home Medications Medication Instructions Recorded Confirmed Last Taken Type multivitamin 1 tab PO EVERY OTHER DAY 09/25/21 01/08/23 1 Day Ago History ~01/07/23 tamsulosin 0.4 mg capsule (Flomax) 0.4 mg PO DAILY #90 caps 10/14/22 01/08/23 1 Day Ago Rx ~01/07/23 ascorbic acid (vitamin C) 500 mg 500 mg PO BID 12/09/22 01/08/23 1 Day Ago History tablet (Vitamin C) ~01/07/23 omega 4-twz-fey-fish oil 1,200 mg 1 cap PO DAILY 12/09/22 01/08/23 1 Day Ago History (144 mg-216 mg) capsule (Fish Oil) ~01/07/23 saw palm 160 mg-vit E 100 1 tab PO DAILY 12/09/22 01/08/23 1 Day Ago History unit-selen 100 ~01/07/23 mcb-wzqg-wcamhj-pygeum tablet (Prostate Health) cyclobenzaprine 10 mg tablet 10 mg PO TID PRN muscle spasm #90 12/11/22 01/08/23 1 Day Ago Rx tabs ~01/07/23 gabapentin 300 mg capsule 300 mg PO TID #90 caps 12/11/22 01/08/23 1 Day Ago Rx ~01/07/23 docusate sodium 100 mg capsule 100 mg PO DAILY #7 caps 12/23/22 01/08/23 1 Day Ago Rx (Colace) ~01/07/23 Walker #1 ea 12/31/22 Unknown Rx Intraoperative neuromonitoring #1 ea 01/05/23 Unknown Rx hydrocodone 10 mg-acetaminophen 1 - 2 tab PO Q6H PRN pain 5 days 01/05/23 01/08/23 1 Day Ago Rx 325 mg tablet #40 tabs ~01/07/23 Allergies Allergy/AdvReac Type Severity Reaction Status Date / Time No Known Allergies Allergy Verified 01/08/23 13:25 [facility] Anesthesia Medical History (Updated 12/31/22 @ 17:20 by Myles Adorno NP) Abnormal EKG he is unsure what this was DDD (degenerative disc disease) Encounter for postoperative care Enlarged prostate History of a prostate nodule HTN (hypertension) with goal to be determined Lumbar radiculopathy Lumbosacral radiculopathy at L5 Sciatica neuralgia Surgical History History of hernia surgery S/P laminectomy Dr. Prater with L4-L5 laminectomy 12/23/2021 Family History Father Cancer brain and skin Mother Cancer ovarian Other Dementia Hyperlipidemia Hypertension Denies family history of Diabetes CAD (coronary artery disease) Clotting disorder Psychiatric illness Chronic kidney disease (CKD) Anesthesia complication Bleeding disorder Lung disease Stroke Social History Smoking and tobacco status: former smoker Alcohol intake: current Alcohol intake frequency: few times a week Desire information about alcohol rehabilitation?: No Substance/Drug Use: never Desire information about substance/drug rehabilitation?: No Lives independently: Yes Marital status: Number of children: 2 Current occupational status: retired Current gender identity: Male Data Anesthesia Cardiac Studies: No Data to Display
[2023-01-12] VITALS (19 sets, daily range): BP systolic 101–165; BP diastolic 56–84; PULSE 67–101; RESP 12–18; TEMP 36.2–36.7; O2SAT 93–97
--- NOTE | 2023-01-12 | XR_ITS ---
WS: [id number] Lumbar spine, C-arm fluoroscopy, 01/12/2023 Clinical Data: SABA PICS Comparison: None. Findings: Dr. Prater performed a fusion of the SI joint. XR/XR lumbar spine 2-3V* [id number] Impression: SI joint fusion.
--- NOTE | 2023-01-12 11:05 | W.PM.OPSUD ---
Surgery/Procedure H&P Update DATE OF PROCEDURE: January 12, 2023 DATE H&P PERFORMED: 01/06/23 H&P UPDATE INFORMATION: I have reviewed H&P completed within last 30 days, I have examined patient prior to procedure and No changes to prior documentation PLANNED PROCEDURE: Operation Date: 01/12/23 12:05 Proposed Procedures p L3-S1 Pelvis PSF with decompression and PLIF at L5/S1 and possibly L4/5:67899,77605,67551,59434,43270,01312,89177 X2,81714,N48.062(Not Applicable) - Abdiel Prater DO s Posterior Lumbar Interbody Fusion(Not Applicable) - Abdiel Prater DO
[2023-01-12 11:45] LABS: Basophils % 0.3 %; Eosinophils # 0.3 10^3/uL (0.0-0.8); Eosinophils % 3.9 %; Hematocrit 46.2 % (42.0-52.0); Hemoglobin 15.6 g/dL (11.7-16.6); Lymphocytes # 2.8 10^3/uL (0.8-4.8); Lymphocytes % 42.7 %; Mean Corpuscular HGB Conc 33.8 g/dL (30.0-36.0); Mean Corpuscular Hemoglobin 32.5 pg (28.0-34.0); Mean Corpuscular Volume 96.3 fl (80-94); Mean Platelet Volume 9.9 fL (7.4-10.4); Monocytes # 0.7 10^3/uL (0.2-0.9); Monocytes % 10.7 %; Neutrophils # 2.78 10^3/uL (1.8-7.7); Neutrophils % 41.9 %; Nucleated Red Blood Cells % 0 %; Platelet Count 278 10^3/cmm (130-400); Red Cell Distribution Width 11.7 % (12.1-15.1); White Blood Count 6.6 10^3/uL (4.0-10.0)
--- NOTE | 2023-01-12 11:48 | P.ANESUD_ITS ---
Pre-Anesthetic Update Pre-Anesthetic Assessment: Date of Surgery/Procedure: 01/12/23 Proposed Procedure: Operation Date: 01/12/23 12:05 Proposed Procedures p L3-S1 Pelvis PSF with decompression and PLIF at L5/S1 and possibly L4/5 :39491,17843,11085,92138,60525,45240,88132 X2,83516,N48.062(Not Applicable) - Abdiel Prater, DO s Posterior Lumbar Interbody Fusion(Not Applicable) - Abdiel H Josi, DO Any changes to Pre-Anesthetic Assessment?: No Last Intake: Intake Last Liquid Date 01/11/23 Last Liquid Time 19:00 Last Solid Date 01/11/23 Last Solid Time 19:00 Labs Last 48hrs: Short CBC 01/12/23 Range/Units 11:25 WBC 6.6 (4.0-10.0) 10^3/ uL Hgb 15.6 (11.7-16.6) g/dL Hct 46.2 (42.0-52.0) % MCV 96.3 H (80-94) fl Plt Count 278 (130-400) 10^3/c mm Neut % (Auto) 41.9 % Neut # (Auto) 2.78 (1.8-7.7) 10^3/u L Vitals: Temperature 97.5 F L 01/12/23 10:54 Temperature Source Temporal Artery S can 01/12/23 10:54 Pulse Rate 67 01/12/23 10:54 Respiratory Rate 18 01/12/23 10:54 Blood Pressure 138/70 01/12/23 10:54 Blood Pressure Chari n 92 01/12/23 10:54 Pulse Oximetry 95 01/12/23 10:54 Oxygen Delivery Me thod Room Air 01/12/23 10:56 Exam: Pre-Anes Outpt Exam: alert, oriented x 3, clear to auscultation bilaterally and regular rate & rhythm Cardiac Studies: No Data to Display
[2023-01-12] MEDS: sodium chloride 0.9% 1,000 ML 30 ML IV (12:16)
[2023-01-12] MEDS: midazolam 1 mg/mL INJ 2 mL 2 MG IVP (12:22)
[2023-01-12] MEDS: ceFAZolin 2,000 MG in sodium chloride 0.9% (plus) 50 ML 100 MG IV ×2 (13:27→17:09)
[2023-01-12] MEDS: vancomycin 1,000 MG SDV 1000 MG XX (15:22)
[2023-01-12] MEDS: lidocaine-epi 1% 20 mL INJ INJECTION (15:22)
[2023-01-12] MEDS: heparin, porcine 1,000 unit/mL INJ 10 mL 10000 UNIT IRRIGATION (15:22)
--- NOTE | 2023-01-12 17:52 | P.OP_ITS ---
Operative Report Date of procedure: January 12, 2023 Pre-op diagnosis: Preop Diagnosis DDD lumbar spine, Lumbar stenosis with neurogenic cladicaation Post-op diagnosis: same Procedure done: 1.? L4/5 Interbody fusion with posterolateral fusion 2.? L5/S1 Interbody fusion with posterolateral fusion 3.? Instrumentation L3-S1 4.? Lumbo pelvic fixation 5.? Posterolateral fusion from L3-Pelvis 6. Cage at L4/5 7. Cage at L5/S1 8. Open SI joint fusion on the right 9. open SI joint fusion of the Left 10. L4/5 Laminectomy with partial facetectomy 11. L5/S1 laminctommy with partial facetectomy 12. use of autograft from same incision 13. allograft 14. Bone marrow aspirate from right iliac crest 15. use of computer navigation stereotactic from spine Surgeon: Abdiel Prater Bottle Selector: Angel Leyva Bottle Selector: The certified surgical assistant, Angel Leyva, PAC was needed for his expertise under the microscope. He was important and necessary throughout the procedure to complete in a safe and timely manner. He assisted with patient positioning prepping and draping tissue retraction suctioning of the operative field protection of the dural sac and tissue closure Estimated blood loss (mL): 1,200 Procedure: 1.? L4/5 Interbody fusion with posterolateral fusion 2.? L5/S1 Interbody fusion with posterolateral fusion 3.? Instrumentation L3-S1 4.? Lumbo pelvic fixation 5.? Posterolateral fusion from L3-Pelvis 6. Cage at L4/5 7. Cage at L5/S1 8. Open SI joint fusion on the right 9. open SI joint fusion of the Left 10. L4/5 Laminectomy with partial facetectomy 11. L5/S1 laminctommy with partial facetectomy 12. use of autograft from same incision 13. allograft 14. Bone marrow aspirate from right iliac crest 15. use of computer navigation stereotactic from spine Patient is brought to the operative suite.? After undergoing anesthesia, the patient had neuro monitoring attached.? Patient was then placed in the prone position on the Jordan table.? All areas of impingement were well-padded.? Patient was then prepped and draped in the normal sterile fashion.? Skin incision was then made over the L3-sacrum.? Subperiosteal dissection was made out to the transverse processes of L3 and L4 and L5 and out to the sacral ala's and dissecting out the sacroiliac joints.? The [employer] bone marrow aspirate kit was used to aspirate bone marrow aspirate from the right iliac crest.? This was done by using the sharp probe to open up the bone.? Aspiration was performed and then the blunt probe was then used to dissect down to through the bone tunnel.? An aspirating well drawn back a almaz meter approximately 20 cc of bone marrow aspirate was used.? And mixed with the allograft and autograft bone that will be used. Extension was brought to placing the pins for the computer navigation fiducial.? This was done by placing 2 iliac crest pins in the right side.? These pins were later removed within the case.? Skin incision made in 2 pins were placed fiducial was attached to these 2 pins.? And then the C-arm was brought in and spun around the patient and the information from the C-arm was then loaded into the computer through the fiducials.? And later used to place the pedicle screws. The technique for placing the pedicle screws was to use a drill followed by the gearshift probe linked to computer navigation.? Followed by the ball probe to feel the superior inferior medial lateral lin of the pedicles.? Then placement of the screws linked to computer navigation.? Was done at each pedicle.? Screws were placed at L 3 bilaterally and L4? bilaterally, L5 bilaterally and S1 queta aterally. Extension was brought to placing the iliac screws.? This was done by using the gearshift linked to computer navigation gearshift was placed just distal to the S1 foramen and lateral.? Was driven through the sacral ala across the iliosacral joint and into the iliac crest.? This was done bilaterally.? And then a 70 mm 9.5 mm iliac screw was placed. Next attention was brought to doing the open SI joint fusions on both the right and the left side.? This was done by identifying the SI joint scraping out the SI joint and packing it with bone graft as well as passing a wire across to the iliac joint that has bone graft capabilities the wire was then drilled and bone graft was packed into this hole and then the screw which is in sacroiliac screw was brought across the joint fusing the joint.? This was done on both the right and the left sides. Next attention was brought to performing the laminectomy ofL4.? This was done using the high-speed bur [place] Rosarioons and curettes.? Once the lamina was removed and then attention was brought to performing a partial facetectomy on the contralateral side.? This was done again using the high-speed bur curettes and Kerrisons.? The ligamentum flavum was taken down bilaterally from L4 to L5.? Attention was then brought to the facet on the ipsilateral side.? The facet was taken down.? The L5 nerve was decompressed as it passed around the L5 pedicle.? The laminectomy was done for purposes of decompressing the nerve as well as placement of the cage.? The L4 nerve was identified as it traversed through the L4/5 foramen.? The thecal sac was identified and retracted.? The L4/5 disc base was identified.? Using a knife the disc base was opened.? And then sequential edd were placed.? The first shaver was a 6 and the last shaver was a 9.? Us ing a pituitary and down going curette the endplates were scraped and disc material was removed from the space.? Once adequate decompression of the disc base was felt to be had.? Osteoamp sponge was packed into the anterior aspect of the disc base.? Then a size 9 cage from [place] was placed after packing osteoamp into the cage.? While placing the cage the thecal sac and L5 nerve was protected.? C arm was used to ensure that the cages placed in the appropriate position. Next attention was brought to performing the laminectomy ofL5.? This was done using the high-speed bur Kerrisons and curettes.? Once the lamina was removed and then attention was brought to performing a partial facetectomy on the contralateral side.? This was done again using the high-speed bur curettes and Kerrisons.? The ligamentum flavum was taken down bilaterally from L5 to S1.? Attention was then brought to the facet on the ipsilateral side.? The facet was taken down.? The S1 nerve was decompressed as it passed around the s1 pedicle.? The laminectomy was done for purposes of decompressing the nerve as well as placement of the cage.? The L5 nerve was identified as it traversed through the L5/S1 foramen.? The thecal sac was identified and retracted.? The L5/S1 disc base was identified.? Using a knife the disc base was opened.? And then sequential edd were placed.? The first shaver was a 6 and the last shaver was a 9.? Using a pituitary and down going curette the endplates were scraped and disc material was removed from the space.? Once adequate decompression of the disc base was felt to be had.? Osteoamp sponge was packed into the anterior aspect of the disc base.? Then a size 9 cage from [employer] was placed after packing osteoamp into the cage.? While placing the cage the thecal sac and S1 nerve was protected.? C arm was used to ensure that the cages placed in the appropriate position. Attention was then brought to attaching the rods to the screws placed in the L3 bilaterally, L4 bilaterally L5 bilaterally S1 bilaterally.? The larisa was also connected to the screws providing the lumbopelvic aspect of the lumbopelvic fixation.? Caps were torqued into position. Locking the construct in place. Wound was copiously irrigated and then attention was brought to decorticating the facets and transverse processes laterally.? Bone that was taken down from the lamina was used along with osteoamp fibers and sponges were packed into the lateral gutters along the facet joints.? This was done bilaterally. Wound was then closed in a layered fashion starting with the thoracolumbar fascia.? 0-vicryl was used the sub cutaneous tissue was closed with 2-0 vicryl and skin with 4-0 monocryl.? Glue was then used to seal the skin and a steril dressing was applied.? Patient was then placed in the supine position. The endotracheal tube was removed and patient was transferred to the PACU in stable condition.
--- NOTE | 2023-01-12 18:43 | ANE.PACU2 ---
Inpatient post-anesthesia follow up: Airway intact: Yes Vital signs: Temperature 98.1 F Pulse Rate 99 Respiratory Rate 17 Blood Pressure 111/69 Pulse Oximetry 95 Oxygen Delivery Me thod Nasal Cannula Oxygen Flow Rate 3 Fraction of Inspir ed Oxygen Hydration adequate: Yes Nausea and vomiting: No Pain level: 1 Mental status: Baseline
[2023-01-12] MEDS: gabapentin 300 mg Capsule PO (20:16)
[2023-01-12] MEDS: oxyCODONE 20 mg ER (12 HR) Tablet PO (20:16)
[2023-01-12] MEDS: sodium chloride 0.9% 1,000 ML 100 ML IV (20:16)
[2023-01-12] MEDS: oxyCODONE-APAP 10-325 mg Tablet PO (22:33)
[2023-01-13] VITALS (13 sets, daily range): BP systolic 116–142; BP diastolic 51–87; PULSE 82–99; RESP 16–18; TEMP 36.6–37.2; O2SAT 93–96
[2023-01-13] MEDS: cyclobenzaprine 10 mg Tablet PO ×3 (00:48→14:18)
[2023-01-13] MEDS: ceFAZolin 2,000 MG in sodium chloride 0.9% (plus) 50 ML 100 MG IV ×3 (00:48→17:21)
[2023-01-13] MEDS: sodium chloride 0.9% 1,000 ML 100 ML IV ×2 (04:23→14:20)
[2023-01-13] MEDS: oxyCODONE-APAP 10-325 mg Tablet PO ×3 (04:59→14:17)
--- NOTE | 2023-01-13 07:17 | P.PN_ITS ---
Subjective Subjective: POD 1 Patient resting comfortably. Reports some mild back pain reports his leg pain have improved. Denies any shortness of breath chest pain or headaches. Vitals/I&O/Wt Last Vital Signs Temp 98.3 F 01/13/23 05:46 Pulse 85 01/13/23 05:46 Resp 16 01/13/23 05:46 BP 135/78 01/13/23 05:46 Pulse Ox 96 01/13/23 05:46 O2 Del Method Room Air 01/12/23 21:20 O2 Flow Rate 3 01/12/23 18:40 01/12/23 01/13/23 01/13/23 22:59 06:59 14:59 Intake Total 3370 / 3420 1581.667 / 5001.667 Output Total 2049 1790 / 3840 Balance 1320 / 1370 -208.333 / 1161.667 Physical Exam Narrative: Patient presents alert and oriented x3 with a good general appearance normal mood and affect. Normal coordination normal stability. Mild tenderness around the incisional site with the incision appear to be clean and dry with Hemovac intact. No signs of erythema or drainage. No signs of infection. Patient denies any fevers or chills. 5/5 motor strength both lower extremities with negative straight leg raise bilaterally. Calves are supple no medial thigh te nderness. Pulses are 2+ at the dorsalis pedis and posterior tibial region. Good capillary refill throughout normal sensation light touch both lower extremities. Urinary Catheter Management: Smith: Cath Placed During This Visit: yes Reason for Continuing Indwelling Catheter: Required Immobilization for Trauma or Surgery or Anesthesia Urinary Catheter Date of Insertion: 01/12/23 Urinary Catheter Time of Insertion: 13:42 Data 01/12/23 11:25 A&P Assessment and plan (1) Status post lumbar spinal fusion: Physical therapy to evaluate and begin mobilizing. We will discontinue the Smith catheter. Given the output of the heme VAC will continue till tomorrow. Attestations Medical Necessity Statement*: Hopeful discharge tomorrow. Coding Level of Care Code Acute Code for Chg Fwd Diagnoses Status post lumbar spinal fusion Z98.1
[2023-01-13] MEDS: ascorbic acid 500 mg Tablet PO ×2 (08:01→17:21)
[2023-01-13] MEDS: multivitamin therapeutic Tablet 1 TAB PO (08:01)
[2023-01-13] MEDS: gabapentin 300 mg Capsule PO ×3 (08:02→21:09)
[2023-01-13] MEDS: docusate sodium 100 mg Capsule PO ×2 (08:02→17:21)
--- NOTE | 2023-01-13 08:41 | PC.PHAR ---
pt states he takes care of his own medications-pt states he no longer takes mobic 15mg daily ext med history shows last filled 12/10/22 30d/s-
[2023-01-13] MEDS: oxyCODONE 20 mg ER (12 HR) Tablet PO ×2 (08:50→21:08)
[2023-01-13 09:27] LABS: Hematocrit 38.6 % (42.0-52.0)
--- NOTE | 2023-01-13 09:38 | PC.CHAP ---
Pastoral Care Encounter/Spiritual Assessment Type of Contact [] Declined operations officer trust department visit [] Patient/Family/Request visit [] Outpatient visit [] Follow-up visit [] Physician referral [] Code/Alert [x] Routine visit [] Staff referral [] Actively dying [] Patient sleeping [] Family support [] [] Out of room [] Palliative care [] [] Receiving care in room [] Pre-surgical visit [] Trauma [] Long length of stay [] ICU visit [] Other: Relational/Emotional Strength [x] Patient feels connected with others/family/visitors/staff [] Distress [] Loneliness/isolation [] Abandonment Spirituality of Patient [x] Person of Nadine [] Attends Buddhism of their Nadine [x] Believes in Prayer [] Reads Bible or Roman Catholic materials [] There are Spiritual issues to be addressed Apartment Maintenance Worker Interventions [x] Prayer [x] Active listening [] Non-anxious presence [] Spiritual/emotional support [] Crisis/trauma care [] Spiritual counseling [] Bereavement support [] Provided bereavement packet [] Provided Bible/devotional materials [] Provided toy/stuffed animal, coloring book to patient or family member [] Provided Communion [] Anointing/[facility] [] Salvation [x] Completed spiritual assessment [] Other: Impact on Illness or Injury [] Angry [] Fearful [] Anxious [] Often cries [] Exhaustion [] Unable to work [] Unable to attend religious [] Unable to walk/stand [] Unable to read [] Unable to drive [] Unable to eat/drink [] Unable to sleep [] Unable to be with family [] Patient intubated [] Other: Summary Time spent with patient 5 min
[2023-01-13] MEDS: tamsulosin 0.4 mg Capsule PO ×3 (14:17→14:19)
--- NOTE | 2023-01-13 18:12 | PC.NURSE ---
Patient resting in bed, OOBTC and to bathroom multiple times throughout shift, voided post velásquez removal. Hemovac in place with copious amount of drainage to gravity however patient disconnected vac multiple times and some measurement was lost. This nurse secured tubing in place. at bedside this evening. Room clean and clutter free with call light in reach. Tolerating diet well.
[2023-01-14] VITALS: BP 118/68; PULSE 88; RESP 18; TEMP 37.2; O2SAT 98
[2023-01-14 04:00] VITALS: BP 127/63; PULSE 87; RESP 18; TEMP 37.2; O2SAT 92
[2023-01-14 04:06] VITALS: RESP 16
[2023-01-14] MEDS: oxyCODONE-APAP 10-325 mg Tablet PO (04:06)
--- NOTE | 2023-01-14 06:36 | PM.PN ---
Subjective Subjective: POD 2 Patient resting comfortably. Is been walking the halls. Denies any leg pain. Intermittent back pain. Denies any chest pain shortness of breath or headaches. Vitals/I&O/Wt Last Vital Signs Temp 98.9 F 01/14/23 04:00 Pulse 87 01/14/23 04:00 Resp 16 01/14/23 04:06 BP 127/63 01/14/23 04:00 Pulse Ox 92 01/14/23 04:00 O2 Del Method Room Air 01/13/23 16:21 O2 Flow Rate 3 01/13/23 20:00 01/13/23 01/13/23 01/14/23 14:59 22:59 06:59 Intake Total 1525 / 1525 785 / 2310 480 / 2790 Output Total 750 / 750 500 / 1250 Balance 775 / 775 285 / 1060 480 / 1540 Physical Exam Narrative: Patient presents alert and oriented x3 with a good general appearance normal mood and affect. Normal coordination normal stability. Mild tenderness around the incisional site with the incision appear to be lean and dry. No signs of erythema or drainage. No signs of infection. Patient denies any fevers or chills. 5/5 motor strength both lower extremities with negative straight leg raise bilaterally. Calves are supple no medial thigh tenderness. Pulses are 2+ at the dorsalis pedis and posterior tibial region. Good capillary refill throughout normal sensation light touch both lower extremities. Urinary Catheter Management: Smith: Cath Placed During This Visit: yes, but has since been removed by the nurse Reason for Continuing Indwelling Catheter: Decision to DC Catheter Urinary Catheter Date of Insertion: 01/12/23 Urinary Catheter Time of Insertion: 13:42 Date Urinary Catheter Removed: 01/13/23 Time Urinary Catheter Discontinued: 08:00 Data 01/13/23 08:52 A&P Assessment and plan (1) Status post lumbar spinal fusion: Discontinue Hemovac drain. Change dressing with new [place]. Continue incentive spirometry at home will discharge home later this morning. He will follow-up with Dr. Prater in 1 week's time for wound check. Continue walking program at home with no bending lifting or twisting. Attestations Medical Necessity Statement*: DisCharge home later today Coding Level of Care Code Acute Code for Chg Fwd Diagnoses Status post lumbar spinal fusion Z98.1
[2023-01-14 08:00] VITALS: BP 142/78; PULSE 86; RESP 18; TEMP 37.2; O2SAT 96
[2023-01-14 09:23] VITALS: RESP 16
[2023-01-14] MEDS: oxyCODONE 20 mg ER (12 HR) Tablet PO (09:23)
[2023-01-14] MEDS: tamsulosin 0.4 mg Capsule PO (09:23)
[2023-01-14] MEDS: multivitamin therapeutic Tablet 1 TAB PO (09:23)
[2023-01-14] MEDS: ascorbic acid 500 mg Tablet PO (09:24)
[2023-01-14] MEDS: gabapentin 300 mg Capsule PO (09:24)
[2023-01-14] MEDS: docusate sodium 100 mg Capsule PO (09:24)
[2023-01-14 11:14] VITALS: RESP 16
--- NOTE | 2023-01-15 10:11 | P.DS_ITS ---
Discharge Providers Date of Admission: 01/12/23 17:58 Date of Discharge: January 14, 2023 Attending Provider at Admission: Abdiel Prater DO Attending Provider at Discharge: Abdiel Prater DO Primary Care Provider: Amado Cooper DO Diagnoses at Discharge Discharge Diagnosis (1) Status post lumbar spinal fusion: Status: Acute Reason for Visit Reason for Visit: L3- Pelvis PSF with decompression and PLIF at L5/ Physical Exam Urinary Catheter Management: Smith: Cath Placed During This Visit: yes, but has since been removed by the nurse Reason for Continuing Indwelling Catheter: Decision to DC Catheter Urinary Catheter Date of Insertion: 01/12/23 Urinary Catheter Time of Insertion: 13:42 Date Urinary Catheter Removed: 01/13/23 Time Urinary Catheter Discontinued: 08:00 Discharge Data Studies Completed and Pending Completed Studies During Hospitalization Category Date Time Status XR lumbar spine 2-3V* [id number] Routine Exams 01/12/23 Completed Radiology Impressions Lumbar Spine X-Ray 01/12/23 00:00 Impression: SI joint fusion. Laboratory Results WBC 6.6 10^3/uL (4.0-10.0) 01/12/23 11:25 RBC 4.80 10^6/uL (4.1-5.3) 01/12/23 11:25 Hgb 13.0 g/dL (11.7-16.6) 01/13/23 08:52 Hct 38.6 % (42.0-52.0) L 01/13/23 08:52 MCV 96.3 fl (80-94) H 01/12/23 11:25 MCH 32.5 pg (28.0-34.0) 01/12/23 11:25 MCHC 33.8 g/dL (30.0-36.0) 01/12/23 11:25 RDW 11.7 % (12.1-15.1) L 01/12/23 11:25 Plt Count 278 10^3/cmm (130-400) 01/12/23 11:25 MPV 9.9 fL (7.4-10.4) 01/12/23 11:25 Neut % (Auto) 41.9 % 01/12/23 11:25 Lymph % (Auto) 42.7 % 01/12/23 11:25 Hanson % (Auto) 10.7 % 01/12/23 11:25 Eos % (Auto) 3.9 % 01/12/23 11:25 Baso % (Auto) 0.3 % 01/12/23 11:25 Neut # (Auto) 2.78 10^3/uL (1.8-7.7) 01/12/23 11:25 Lymph # (Auto) 2.8 10^3/uL (0.8-4.8) 01/12/23 11:25 Hanson # (Auto) 0.7 10^3/uL (0.2-0.9) 01/12/23 11:25 Eos # (Auto) 0.3 10^3/uL (0.0-0.8) 01/12/23 11:25 Baso # (Auto) 0.0 10^3/uL (0.0-0.1) 01/12/23 11:25 Nucleated RBC % (auto) 0 % 01/12/23 11: Nucleated RBCs # 0.0 /100WBC 01/12/23 11:25 Blood Type O Positive 01/12/23 11:25 Rho(D) Type Positive 01/12/23 11:25 Antibody Screen Negative 01/12/23 11:25 Vitals Last Vital Signs Temp 99.0 F 01/14/23 08:00 Pulse 86 01/14/23 08:00 Resp 16 01/14/23 11:14 BP 142/78 01/14/23 08:00 Pulse Ox 96 01/14/23 08:00 O2 Del Method Room Air 01/14/23 08:00 O2 Flow Rate 3 01/13/23 20:00 Discharge Plan Discharge Patient Disposition: Home Health Service Condition: Stable Prescriptions: Continued cyclobenzaprine 10 mg tablet 10 mg PO TID PRN (Reason: muscle spasm) Qty: 90 0RF gabapentin 300 mg capsule 300 mg PO TID Qty: 90 0RF (DME) Walker See Rx Instructions .Route .MEDSUPPLY Qty: 1 0RF Rx Instructions: As directed HOME (DME) Intraoperative neuromonitoring See Rx Instructions .Route .MEDSUPPLY Qty: 1 0RF Rx Instructions: As directed hydrocodone-acetaminophen 10-325 mg tablet 1 - 2 tab PO Q6H PRN (Reason: pain) 5 Days Qty: 40 0RF omega 4-vtr-cyj-fish oil [Fish Oil] 1,200 (144-216) mg Capsule 1 cap PO DAILY Prostate Health 160-100-100 mg-unit-mcg Tablet 1 tab PO Q7D multivitamin Tablet 1 tab PO DAILY@12 acetaminophen 500 mg Tablet 500 - 1,000 mg PO Q6H PRN (Reason: Pain) tamsulosin 0.4 mg capsule 0.4 mg PO QAM Vitamin C 500 mg Tablet,Chewable 500 mg PO BID PRN (Reason: unknown) Colace 100 mg Capsule 100 mg PO DAILY@12 No Action oxycodone-acetaminophen 10-325 mg tablet 1 - 2 tab PO Q4H PRN (Reason: pain) 7 Days Qty: 40 0RF Discharge Orders: Discharge Order (Routine); Ordered 01/14/23 Ordered By: Angel Leyva Referrals: [facility] [place] [facility] ([facility]) [Outside] Abdiel Prater DO [Physician] - 01/20/23 8:30 am Discharge Diet: Advance as tolerated Discharge Activity: Limit activity as instructed Patient Instructions: Lumbar Spinal Fusion (GEN), Opioid Safety Activity Restrictions/Additional Instructions: Thank you for choosing [facility] for your care! The following is a list of instructions, from your provider, to follow upon your discharge to ensure you have the optimal recovery from your recent injury or surgery. Follow-up care is a thapa part of your treatment and safety. Be sure to make and go to all appointments and call your doctor if you are having problems. If you do not already have a follow-up appointment made, call Dr. Prater's] office in the next 1-3 days to make follow up appointment for 1 weeks at [phone]. It is also a good idea to know your test results and keep a list of the medicines you take. Medications will be prescribed for you at your provider's discretion. These medications are to be used as instructed; if they are taken more often that prescribed they will not be refilled early and in most cases will not be refilled at all. > When a refill is needed, you should contact [facility] 2-3 business days before your prescription runs out. Medications will NOT be refilled by correctional casework specialist providers after hours! > Many pain medications contain Tylenol (Acetaminophen). Do not consume more than 4,000 mg of Tylenol per day in total with any combination of medications. > Pain medications can cause constipation. Please use an over the counter stool softener as directed, while taking pain medications. Consult your local pharmacist with questions or recommendations on stool softeners. If constipation persists, contact our office or your primary care provider. > While under our care, you are not to receive pain medications or other controlled substances from any other provider unless our office is notified and approves. Any attempts to do so will result in refusal to prescribe any further pain medications and possible dismissal from our practice. ? Walking is essential for the healing process after surgery. We would like you to slowly advance your walking. This should be done on relatively flat clear ground (inside or out) or can be done on a treadmill. Remember this goal does not have to happen all at once, slowly increase your distance and duration. This can be broken into more more than one walk per day as tolerated. Patients who walk as directed after surgery rarely require Physical Therapy. In the unlikely event this issue arises your provider will direct hospital staff to make the appropriate arrangements. ? No lifting over 5 pounds {a gallon of milk) or bending/twisting until further notice. Each of these activities places an unnecessary amount of stress onto the body and can impede the delicate healing process. > Instead of bending at the waist, keep your back straight and bend at the knees. > Instead of twisting your torso, keep your back straight and turn your entire body with your feet. ? You may sleep in any position which makes you comfortable. Many patients find comfort sleeping in a reclining chair. It is not abnormal to have difficulty sleeping for the first several weeks following your surgery. We recommend trying Benadry! or Tylenol PM as directed to help with your sleeping difficulties. Both medications are over the counter and available without prescription. ? NO SMOKING!!! Smoking dramatically increases the probability of developing postoperative wound infections. ? Common complaints after lumbar and/or thoracic spine surgery include, but are not limited to: numbness and/or tingling in the legs, pain around the incision and surrounding tissues, muscle spasms, or stiffness of the middle to low back. Contact our office if these symptoms persist or if an acute change occurs. ? No driving for the first 3-5days, and not while taking narcotics until seen at your follow-up appointment and cleared. There are no restrictions for riding on short trips, however if you take a longer trip, arrangements should be made to make regular stops to get out of the vehicle and stretch . ? Swelling is an unfortunate event that will take place with any surgery and is the primary source of your postoperative discomfort. While walk ing and regular approved activities helps control inflammation, there are additional steps you can take to minimize swelling. > Place ice over the surgical site and surrounding tissue for twenty minutes, followed by applying a low/medium heat (heating pad) for an additional twenty minutes every 1-2 hours as needed for painrelief. > You may use of over the counter anti-inflammatory medications (Ibuprofen, Motrin, Aleve, Advil, etc) as directed on the package label. These types of medicines will significantly reduce the amount of discomfort you experience after surgery from swelling. It should be noted that if you have and allergy to any of these medications, or a history of ulcers or kidney disease you should consult you primary care provider prior to starting these medication s. Discharge Attestations Time Spent in Discharge Care*: less than 30 min Quality Metrics Clinical Quality Measures [ No reported AMI, CVA or VTE this stay] Coding Level of Care Code Acute Code for Chg Fwd Diagnoses Status post lumbar spinal fusion Z98.1
== END 2023-01-14 11:10 | disposition home health service (06) | DRG 455 ==
LOC: MEDSURG 17:59
PROVIDERS: Anesthesiology; Admitting Provider Orthopaedic Surgery; PCP Family Medicine; Visit Provider Orthopaedic Surgery
PROC: 0SG00AJ Fusion of Lumbar Vertebral Joint with Interbody Fusion Device, Posterior Approach, Anterior Column, Open Approach (ICD-10-PCS; principal; 2023-01-12 11:55)
PROC: 0SG00AJ Fusion of Lumbar Vertebral Joint with Interbody Fusion Device, Posterior Approach, Anterior Column, Open Approach (ICD-10-PCS; CPT 22612; 2023-01-12 11:55)
DX: M48.062 Spinal stenosis, lumbar region with neurogenic claudication (principal); Z79.891 Long term (current) use of opiate analgesic; Z79.52 Long term (current) use of systemic steroids; I10 Essential (primary) hypertension; Z98.1 Arthrodesis status; Z87.891 Personal history of nicotine dependence
CPT/HCPCS: 36415; 51702; 72100; 76000; 85014; 85018; 85025; 86850; 86900; 97110; 97116; 97161; 97530; C1713; J0690; J1100; J1170; J1644; J2250; J2405; J2704; J3010; J3370; J3490; J7030; P9045

== ENCOUNTER → 2023-01-20 08:20 | Outpatient (BNVA) | payer MEDICARE, SELFPAY | PROVIDERS: PCP Family Medicine; Visit Provider Orthopaedic Surgery | DX: Z47.89 Encounter for other orthopedic aftercare (principal); Z98.1 Arthrodesis status | CPT/HCPCS: 81001; 99024 ==

== ENCOUNTER → 2023-01-27 10:29 | Outpatient (BNVA) | payer MEDICARE, SELFPAY | PROVIDERS: PCP Family Medicine; Visit Provider Orthopaedic Surgery | DX: Z47.89 Encounter for other orthopedic aftercare (principal); Z98.1 Arthrodesis status | CPT/HCPCS: 99024 ==

== ENCOUNTER → 2023-02-03 13:56 | Outpatient (BNVA) | payer MEDICARE, SELFPAY | PROVIDERS: PCP Family Medicine; Visit Provider Family Medicine | DX: R30.0 Dysuria (principal) | CPT/HCPCS: 81000 ==

== ENCOUNTER → 2023-03-10 13:05 | Outpatient (BNVA) | payer MEDICARE, SELFPAY | PROVIDERS: PCP Family Medicine; Visit Provider Orthopaedic Surgery | DX: Z98.1 Arthrodesis status (principal) | CPT/HCPCS: 72100; 99024 ==

== ENCOUNTER → 2023-04-09 13:48 | Outpatient (BNVA) | payer MEDICARE, SELFPAY | PROVIDERS: PCP Family Medicine; Visit Provider Orthopaedic Surgery | DX: Z98.1 Arthrodesis status (principal); Z47.89 Encounter for other orthopedic aftercare | CPT/HCPCS: 72100; 99024 ==

== ENCOUNTER → 2023-05-28 09:28 | Outpatient (BNVA) | payer MEDICARE, SELFPAY | PROVIDERS: PCP Family Medicine; Visit Provider Family Medicine | DX: D48.9 Neoplasm of uncertain behavior, unspecified (principal); L82.1 Other seborrheic keratosis | CPT/HCPCS: 88304 ==

== ENCOUNTER → 2023-06-18 11:57 | Outpatient (BNVA) | payer MEDICARE, SELFPAY | PROVIDERS: PCP Family Medicine; Visit Provider Psychiatry & Neurology Neurology | DX: Z98.890 Other specified postprocedural states (principal); M54.31 Sciatica, right side; R29.90 Unspecified symptoms and signs involving the nervous system | CPT/HCPCS: 72100; 99204 ==

== ENCOUNTER → 2023-06-25 13:38 | Outpatient (BNVA) | payer MEDICARE, SELFPAY | PROVIDERS: PCP Family Medicine; Visit Provider Orthopaedic Surgery | DX: Z98.1 Arthrodesis status (principal) | CPT/HCPCS: 72100; 99214 ==

== ENCOUNTER → 2023-08-10 14:51 | Outpatient (BNVA) | payer MEDICARE, SELFPAY | PROVIDERS: PCP Family Medicine; Visit Provider Psychiatry & Neurology Neurology | DX: G57.31 Lesion of lateral popliteal nerve, right lower limb (principal); M54.31 Sciatica, right side; Z98.1 Arthrodesis status | CPT/HCPCS: 99212 ==

== ENCOUNTER → 2023-10-20 15:06 | Outpatient (BNVA) | payer MEDICARE, SELFPAY | PROVIDERS: PCP Family Medicine; Visit Provider Family Medicine | DX: R53.82 Chronic fatigue, unspecified (principal); E29.1 Testicular hypofunction; Z12.5 Encounter for screening for malignant neoplasm of prostate; I10 Essential (primary) hypertension; E55.9 Vitamin D deficiency, unspecified; N40.0 Benign prostatic hyperplasia without lower urinary tract symptoms | CPT/HCPCS: 80053; 80061; 82306; 84403; 84443; G0103 ==

== ENCOUNTER → 2023-10-27 14:01 | Outpatient (BNVA) | payer MEDICARE, SELFPAY | PROVIDERS: PCP Family Medicine; Visit Provider Orthopaedic Surgery | DX: Z47.89 Encounter for other orthopedic aftercare; Z98.1 Arthrodesis status | CPT/HCPCS: 72100; 99214 ==

== ENCOUNTER → 2024-01-05 13:23 | Outpatient (BNVA) | payer MEDICARE, SELFPAY | PROVIDERS: PCP Family Medicine; Visit Provider Orthopaedic Surgery | DX: Z98.1 Arthrodesis status (principal) | CPT/HCPCS: 72100; 99213 ==

== ENCOUNTER → 2024-02-10 08:06 | Outpatient (BNVA) | payer MEDICARE, SELFPAY | PROVIDERS: PCP Family Medicine; Visit Provider Nurse Practitioner Family | DX: D48.5 Neoplasm of uncertain behavior of skin (principal); L57.0 Actinic keratosis; L82.1 Other seborrheic keratosis; D23.72 Other benign neoplasm of skin of left lower limb, including hip; L73.8 Other specified follicular disorders | CPT/HCPCS: 11102; 17000; 99203 ==

== ENCOUNTER → 2024-03-01 09:40 | Outpatient (BNVA) | payer MEDICARE, SELFPAY | PROVIDERS: PCP Family Medicine; Visit Provider Dermatology | DX: C44.319 Basal cell carcinoma of skin of other parts of face (principal); L82.1 Other seborrheic keratosis; L70.8 Other acne; L81.4 Other melanin hyperpigmentation | CPT/HCPCS: 17282; 99213 ==

== ENCOUNTER → 2024-05-31 14:33 | Outpatient (BNVA) | payer MEDICARE, SELFPAY | PROVIDERS: PCP Family Medicine; Visit Provider Nurse Practitioner Family | DX: D48.5 Neoplasm of uncertain behavior of skin (principal); L57.0 Actinic keratosis; S00.80XA Unspecified superficial injury of other part of head, initial encounter; X58.XXXA Exposure to other specified factors, initial encounter; L73.8 Other specified follicular disorders; L81.4 Other melanin hyperpigmentation; D22.5 Melanocytic nevi of trunk; Z85.828 Personal history of other malignant neoplasm of skin | CPT/HCPCS: 11102; 17000; 99213 ==

== ENCOUNTER → 2024-06-23 14:21 | Outpatient (BNVA) | payer MEDICARE, SELFPAY | PROVIDERS: PCP Family Medicine; Visit Provider Family Medicine | DX: G25.2 Other specified forms of tremor (principal); E78.5 Hyperlipidemia, unspecified | CPT/HCPCS: 80053; 80061; 85025 ==

== ENCOUNTER → 2024-07-06 14:25 | Outpatient (BNVA) | payer MEDICARE, SELFPAY | PROVIDERS: PCP Family Medicine; Referring Provider Family Medicine; Visit Provider Surgery | DX: Z12.11 Encounter for screening for malignant neoplasm of colon (principal) | CPT/HCPCS: 99024; 99204 ==

== ENCOUNTER → 2024-10-09 14:31 | Outpatient (BNVA) | payer BC, SELFPAY | PROVIDERS: PCP Family Medicine; Visit Provider Family Medicine | DX: R05.9 Cough, unspecified (principal); J20.9 Acute bronchitis, unspecified | CPT/HCPCS: 87400 ==